=== PATIENT | male | born 1950 | race Caucasian/White ===

== ENCOUNTER → 2017-03-06 | Outpatient (CLI) | payer MEDICARE, BC | END | disposition disaster alternative care site (69) | LOC: GAMB 08:14 | DX: R07.9 Chest pain, unspecified (principal) ==

== ENCOUNTER → 2017-03-08 | Outpatient (CLI) | payer MEDICARE, BC | END | disposition disaster alternative care site (69) | LOC: GAMB 10:26 | DX: G45.9 Transient cerebral ischemic attack, unspecified (principal); R41.82 Altered mental status, unspecified; Z79.82 Long term (current) use of aspirin | CPT/HCPCS: A0425; A0427 ==